=== PATIENT | female | born 2000 | race Caucasian/White ===

== ENCOUNTER 2021-07-26 19:07 | Emergency (ER) | payer BC ==
[2021-07-26 19:11] VITALS: BP 135/85; PULSE 89
[2021-07-26] MEDS: Tetracaine HCl/PF 0.5% 4 ML Bottle EYELF ONE (19:20)
[2021-07-26] MEDS: Bacitracin/Neomycin/Polymyxin B Ophth Oint 3.5 GM Tube EYELF SCH (19:47)
== END 2021-07-26 19:55 | disposition home or self-care (01) ==
LOC: CC.ED 19:07
DX: S05.02XA Injury of conjunctiva and corneal abrasion without foreign body, left eye, initial encounter (principal); W22.8XXA Striking against or struck by other objects, initial encounter; Y99.0 Civilian activity done for income or pay
CPT/HCPCS: 99283